=== PATIENT | male | born 1970 | race Native Hawaiian/Other Pacific Islander ===

== ENCOUNTER 2016-10-11 21:46 | Inpatient (IN) | payer OTHER ==
[2016-10-11] MEDS ORDERED: Iohexol 240 (50 ml) PO ONE (23:12)
[2016-10-11] MEDS ORDERED: Sodium Chloride 0.9% 1,000 ML IV STA (23:12)
--- NOTE | 2016-10-11 23:17 | ED PDOC ---
HPI: Abdomen Time Seen by Provider: 10/11/16 22:57 Chief Complaint (Nursing): Abdominal Pain Chief Complaint (Provider): abdominal pain History Per: Patient, Family History/Exam Limitations: no limitations Onset/Duration Of Symptoms: Days (2) Current Symptoms Are (Timing): Still Present Location Of Pain/Discomfort: Diffuse Quality Of Discomfort: Cramping, "Pain" Associated Symptoms: denies: Nausea, Vomiting, Diarrhea Last Bowel Movement: Days Ago (2) Additional History Per: Patient Additional Complaint(s): 46 y/o male history of stomach CA (status-post partial gastrectomy x 7 years) presents to ED with diffuse abdominal pain x 2 days. Associated constipation, not passing gas rectally, decreased appetite. Denies fever, nausea/vomiting, chest pain, shortness of breath, palpitations, dysuria, hematuria. Past Medical History Reviewed: Historical Data, Nursing Documentation, Vital Signs Vital Signs: Last Vital Signs Temp 98.5 F 10/11/16 22:12 Pulse 77 10/11/16 22:12 Resp 18 10/11/16 22:12 BP 108/84 10/11/16 22:12 Pulse Ox 99 10/12/16 04:25 - Medical History Other PMH: stomach CA - Surgical History Other surgeries: partial gastrectomy - Family History Family History: States: Unknown Family Hx - Social History Current smoker - smoking cessation education provided: No Alcohol: Social Drugs: Denies - Home Medications Home Medications: Ambulatory Orders Medication Instructions Recorded No Known Home Med 10/12/16 - Allergies Allergies/Adverse Reactions: Allergies Allergy/AdvReac Type Severity Reaction Status Date / Time No Known Allergies Allergy Verified 10/11/16 22:10 Review of Systems ROS Statement: Except As Marked, All Systems Reviewed And Found Negative Gastrointestinal: Positive for: Abdominal Pain Physical Exam - Reviewed Nursing Documentation Reviewed: Yes Vital Signs Reviewed: Yes - Physical Exam Appears: Positive for: Well, Non-toxic, Uncomfortable Head Exam: Positive for: ATRAUMATIC, NORMAL INSPECTION, NORMOCEPHALIC Skin: Positive for: Pallor Eye Exam: Positive for: Normal appearance ENT: Positive for: Normal ENT Inspection Cardiovascular/Chest: Positive for: Regular Rate, Rhythm Respiratory: Positive for: Normal Breath Sounds Gastrointestinal/Abdominal: Positive for: Bowel Sounds (no BS appreciated LUQ, LLQ), Soft, Tenderness (diffuse), Distended Extremity: Positive for: Normal ROM Neurologic/Psych: Positive for: Alert, Oriented - Laboratory Results Result Diagrams: 10/11/16 23:30 10/11/16 23:30 - ECG ECG: Positive for: Viewed By Me (reviewed by ED attending) ECG Rhythm: Positive for: Junctional Rhythm O2 Sat by Pulse Oximetry: 99 - Radiology X-Ray: Viewed By Me X-Ray Interpretation: No Acute Disease - Progress ED Course And Treament: labs, urine, CT abd/pelvis, IV morphine, IV fluids EXAM: CT Abdomen and Pelvis With Intravenous Contrast. CLINICAL HISTORY: 46 years old, male; Pain; Abdominal pain; Generalized; Prior surgery; Surgery date: 6+ months; Surgery type: Gastrectomy; Additional info: Abd pain, history of stomach ca TECHNIQUE: Axial computed tomography images of the abdomen and pelvis with intravenous contrast. This CT exam was performed using one or more of the following dose reduction techniques : automated exposure control, adjustment of the mA and/or kV according to patient size, and/ or use of iterative reconstruction technique. Coronal and sagittal reformatted images were created and reviewed. CONTRAST: 95 mL of [id number] administered intravenously. EXAM DATE/TIME: Exam ordered 10/11/2016 11:12 PM COMPARISON: No relevant prior studies available. FINDINGS: Lower thorax: No acute findings. ABDOMEN: Liver: There are several hepatic cysts measuring up to 20 mm. Gallbladder and bile ducts: Unremarkable. No calcified stones. No ductal dilation. Pancreas: Unremarkable. No mass. No ductal dilation. Spleen: Unremarkable. No splenomegaly. Adrenals: Unremarkable. No mass. Kidneys and ureters: There is a left renal cyst measuring up to 10 mm. No hydronephrosis. Stomach and bowel: There has been partial gastrectomy with gastrojejunostomy. There are distended segments of small bowel with collapsed distal ileum consistent with small bowel obstruction. There is an abrupt point of transition in the mid abdomen deep and to the right of the umbilicus on series 601 images #[id number] and series 3, images #[id number]. Much of the colon is collapsed. Appendix: There are no changes of appendicitis. A normal appendix is not seen. PELVIS: Bladder: Unremarkable. No mass. Reproductive: Unremarkable as visualized. ABDOMEN and PELVIS: Intraperitoneal space: There is trace fluid in the pelvis, likely reactive. No free air. Bones/joints: No acute fracture. No dislocation. Soft tissues: Unremarkable. Vasculature: Unremarkable. No abdominal aortic aneurysm. Lymph nodes: Unremarkable. No enlarged lymph nodes. IMPRESSION: 1. Small bowel obstruction. There is an abrupt point of transition in the mid abdomen deep and to the right of the umbilicus. 2. Status post partial gastrectomy with gastrojejunostomy. 3. Trace fluid in the pelvis, likely reactive. Thank you for allowing u Case discussed with Dr. Horn, Surgeon on-call, who will consult patient in am. Dr. Adame, president ceo & founder on-call, aware. Case discussed with Dr. Horn, medical service on-call, for admission. Dr. Horn requesting GI consult. Dr Rizvi, GI fellow working with Dr. Dimas, aware. Disposition - Clinical Impression Clinical Impression: Small bowel obstruction - Patient ED Disposition Is Patient to be Admitted: Yes - Disposition Disposition Time: 03:10 Condition: FAIR - Pt Status Changed To: Hospital Disposition Of: Inpatient - Admit Certification Admit to Inpatient:: After my assessment, the patient will require hospitalization for at least two midnights. This is because of the severity of symptoms shown, intensity of services needed, and/or the medical risk in this patient being treated as an outpatient.
[2016-10-11] MEDS ORDERED: Iohexol 240 (50 ml) ONE (23:45)
[2016-10-11 23:55] LABS: BASO % 0.7 % (0.0-2.0); EOS # 0.1 K/uL (0.0-0.7); HEMATOCRIT 44.6 % (35.0-51.0); LYMPH % 19.1 % (20.0-40.0); MEAN CELL VOLUME 84.2 fl (80.0-94.0); MEAN CORPUSCULAR HEMOGLOBIN 26.6 pg (27.0-31.0); MEAN CORPUSCULAR HGB CONC 31.6 g/dL (33.0-37.0); MEAN PLATELET VOLUME 8.4 fl (7.2-11.7); MONO # 0.8 K/uL (0.0-0.8); MONO % 16.5 % (0.0-10.0); NEUT # 3.1 K/uL (1.8-7.0); NEUT % 61.7 % (50.0-75.0); NRBC % 0.1 % (0.0-0.0); RED CELL DISTRIBUTION WIDTH 14.2 % (11.5-14.5)
[2016-10-12 00:05] LABS: ALB/GLOB RATIO 1.3 (1.0-2.1); ALKALINE PHOSPHATASE 66 U/L (38-126); ALT/SGPT 27 U/L (21-72); AST/SGOT 27 U/L (17-59); BILIRUBIN,TOTAL 2.3 mg/dl (0.2-1.3); BLOOD UREA NITROGEN 24 mg/dl (9-20); CALCIUM 9.6 mg/dL (8.4-10.2); CARBON DIOXIDE 24 mmol/L (22-30); CHLORIDE 97 mmol/L (98-107); GFR AFRICAN-AMERICAN > 60; GLUCOSE,RANDOM 120 mg/dL (75-110); LIPASE 22 U/L (23-300); POTASSIUM 4.1 MMOL/L (3.6-5.0); SODIUM 130 mmol/l (132-148); TOTAL PROTEIN 8.1 G/DL (6.3-8.2)
[2016-10-12 00:15] LABS: PARTIAL THROMBOPLASTIN TIME 25.8 SECONDS (23.3-32.5)
[2016-10-12] MEDS ORDERED: Iohexol 300 100 ML IJ ONE (01:41)
[2016-10-12] MEDS ORDERED: Sodium Chloride 0.9% 50 ML IV ONE (01:41)
[2016-10-12] MEDS ORDERED: Dextrose 5%/0.45% NS 500 ML IV SCH (04:30)
--- NOTE | 2016-10-12 07:06 | CARD ---
APPROVED REPORT EKG Measurement Heart [id number] <Conclusion> Sinus rhythm normal ECG
--- NOTE | 2016-10-12 07:33 | CP.PCM.CON ---
<Augustus Esparza Main - Last Filed: 10/12/16 07:22> History of Present Illness - History of Present Illness History of Present Illness: General Surgery: Dr Martins Pt is a 46M with PMH + for partial gastrectomy with gastrojejunostomy for gastric cancer 8 years ago in [place]. He presents to ED with ~3 day history of diffuse abdominal pain, obstipation, and nausea. Pt reports he has not had a BM or passed flatus since tuesday. He has been getting progressively more distended. He has felt like he needs to vomit but has been unable to. 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 The previous episodes have lasted only 24 hours and resolved spontaneously. He denies any further associated symptoms including fevers, chills, diarrhea, dysuria, recent URI. PMH: gastric cancer PSHx: partial gastrectomy w/ Billroth II reconstruction Social: former smoker, social EtOH use Review of Systems - Review of Systems All systems: reviewed and no additional remarkable complaints except (as per hpi ) Past Patient History - Past Social History Alcohol: Social Drugs: Denies - HEMATOLOGICAL/ONCOLOGICAL Hx Cancer: Yes (stomach) - PSYCHIATRIC Hx Substance Use: No Meds Allergies/Adverse Reactions: Allergies Allergy/AdvReac Type Severity Reaction Status Date / Time No Known Allergies Allergy Verified 10/11/16 22:10 - Medications Medications: Current Medications Sodium Chloride (Sodium Chloride 0.9%) 1,000 mls @ 125 mls/hr IV .Q8H ALEJANDRO Stop: 10/13/16 07:31 Morphine Sulfate (Morphine) 4 mg IVP Q4 PRN PRN Reason: Pain, moderate (4-7) Ondansetron HCl (Zofran Inj) 4 mg IVP Q4 PRN PRN Reason: Nausea/Vomiting Physical Exam - Constitutional Appears: Non-toxic, No Acute Distress - Head Exam Head Exam: NORMOCEPHALIC - Eye Exam Eye Exam: absent: Scleral icterus - ENT Exam ENT Exam: Mucous Membranes Dry - Respiratory Exam Respiratory Exam: absent: Accessory Muscle Use, Respiratory Distress - Cardiovascular Exam Cardiovascular Exam: REGULAR RHYTHM. absent: Tachycardia - GI/Abdominal Exam GI & Abdominal Exam: Distended, Soft, Tenderness (minimal and diffuse). absent : Firm, Guarding, Hernia, Rebound, Rigid - Extremities Exam Extremities exam: Negative for: pedal edema - Neurological Exam Neurological exam: Alert, Oriented x3 - Psychiatric Exam Psychiatric exam: Normal Affect, Normal Mood Results - Vital Signs Recent Vital Signs: Last Vital Signs Temp 98.5 F 10/11/16 22:12 Pulse 61 10/12/16 06:41 Resp 16 10/12/16 06:41 BP 110/80 10/12/16 06:41 Pulse Ox 96 10/12/16 06:41 - Labs Result Diagrams: 10/11/16 23:30 10/11/16 23:30 Assessment & Plan - Assessment and Plan (Free Text) Assessment: 46M with PMH of billroth 2 now presents with partial SBO Plan: NPO IV fluids anti-emetics PRN pain medicine PRN hold DVT prophylaxis as OR may be considered in future further recs pending attending evaluation - will add addendum will d/w Dr Eliezer Esparza, PGY2 - Date & Time Date: 10/12/16 Time: 07:35 <Eliazar Martins - Last Filed: 10/12/16 09:27> History of Present Illness - History of Present Illness History of Present Illness: Patient was seen and examined at the bedside. Agree with the resident's note above. Meds - Medications Medications: Current Medications Sodium Chloride (Sodium Chloride 0.9%) 1,000 mls @ 125 mls/hr IV .Q8H ALEJANDRO Stop: 10/13/16 07:31 Morphine Sulfate (Morphine) 4 mg IVP Q4 PRN PRN Reason: Pain, moderate (4-7) Ondansetron HCl (Zofran Inj) 4 mg IVP Q4 PRN PRN Reason: Nausea/Vomiting Results - Vital Signs Recent Vital Signs: Last Vital Signs Temp 98.7 F 10/12/16 07:30 Pulse 62 10/12/16 07:30 Resp 19 10/12/16 07:30 BP 121/74 10/12/16 07:30 Pulse Ox 96 10/12/16 07:30 - Labs Result Diagrams: 10/12/16 08:00 10/12/16 05:28 Labs: Laboratory Results - last 24 hr 10/12/16 10/12/16 05:28 08:00 WBC 4.5 L RBC 4.64 Hgb 12.6 Hct 39.0 MCV 83.9 MCH 27.2 MCHC 32.4 L RDW 14.1 Plt Count 183 MPV 8.4 Neut % (Auto) 43.8 L Lymph % (Auto) 32.0 [place] % (Auto) 19.5 H Eos % (Auto) 4.3 H Baso % (Auto) 0.4 Neut # 2.0 Lymph # 1.4 [place] # 0.9 H Eos # 0.2 Baso # 0.0 Sodium 140 Potassium 3.8 Chloride 99 Carbon Dioxide 28 Anion Gap 17 BUN 19 Creatinine 0.9 Est GFR ( Amer) > 60 Est GFR (Non-Af Amer) > 60 Random Glucose 116 H Calcium 8.7 Total Bilirubin 1.7 H AST 20 ALT 20 L D Alkaline Phosphatase 52 Total Protein 6.7 Albumin 3.8 Globulin 2.9 Albumin/Globulin Ratio 1.3 - Imaging and Cardiology CT scan - abdomen Status: Image reviewed by me, Report reviewed by me Assessment & Plan - Assessment and Plan (Free Text) Assessment: 46 y.o. male with small bowel obstruction Plan: - Keep NPO - IV fluids - pain control - NG tube if vomits - Pepcid - Repeat labs in am - Will follow
[2016-10-12 08:15] LABS: RBC URINE 2 /hpf (0-3); URINE BILIRUBIN NEGATIVE (NEGATIVE); URINE BLOOD NEGATIVE (NEGATIVE); URINE COLOR AMBER (YELLOW); URINE GLUCOSE (UA) NEG (Normal); URINE KETONE 80 mg/dL (NEGATIVE); URINE LEUKOCYTE ESTERASE NEG Leu/uL (Negative); URINE PROTEIN 100 mg/dL (NEGATIVE); URINE UROBILINOGEN 0.2-1.0 mg/dL (0.2-1.0); WBC URINE 4 /hpf (0-5)
[2016-10-12 08:37] LABS: ALB/GLOB RATIO 1.3 (1.0-2.1); ALKALINE PHOSPHATASE 52 U/L (38-126); ALT/SGPT 20 U/L (21-72); AST/SGOT 20 U/L (17-59); BILIRUBIN,TOTAL 1.7 mg/dl (0.2-1.3); BLOOD UREA NITROGEN 19 mg/dl (9-20); CALCIUM 8.7 mg/dL (8.4-10.2); CARBON DIOXIDE 28 mmol/L (22-30); CHLORIDE 99 mmol/L (98-107); GFR AFRICAN-AMERICAN > 60; GLUCOSE,RANDOM 116 mg/dL (75-110); POTASSIUM 3.8 MMOL/L (3.6-5.0); SODIUM 140 mmol/l (132-148); TOTAL PROTEIN 6.7 G/DL (6.3-8.2)
[2016-10-12 08:37] LABS: BASO % 0.4 % (0.0-2.0); EOS # 0.2 K/uL (0.0-0.7); EOS % 4.3 % (0.0-4.0); LYMPH # 1.4 K/uL (1.0-4.3); MEAN CELL VOLUME 83.9 fl (80.0-94.0); MEAN CORPUSCULAR HEMOGLOBIN 27.2 pg (27.0-31.0); MEAN CORPUSCULAR HGB CONC 32.4 g/dL (33.0-37.0); MEAN PLATELET VOLUME 8.4 fl (7.2-11.7); MONO # 0.9 K/uL (0.0-0.8); MONO % 19.5 % (0.0-10.0); NEUT % 43.8 % (50.0-75.0); NRBC % 0.2 % (0.0-0.0); RED CELL DISTRIBUTION WIDTH 14.1 % (11.5-14.5); WHITE BLOOD COUNT 4.5 K/uL (4.8-10.8)
--- NOTE | 2016-10-12 09:08 | CT ---
PROCEDURE: CT Abdomen and Pelvis with contrast HISTORY: abd pain, history of stomach CA COMPARISON: None. TECHNIQUE: Contrast dose: 95 mL Omnipaque 300 Radiation dose: Total exam DLP = 448.50 mGy-cm. FINDINGS: LOWER THORAX: Unremarkable. LIVER: Normal size and contour. Multiple low-density masses, possibly cysts, largest 2.0 cm. Consider correlation with ultrasound. No biliary dilatation. GALLBLADDER AND BILE DUCTS: Unremarkable. PANCREAS: Unremarkable. No gross lesion or ductal dilatation. SPLEEN: Unremarkable. ADRENALS: Unremarkable. No mass. KIDNEYS AND URETERS: Unremarkable. No hydronephrosis. No solid mass. VASCULATURE: Unremarkable. No aortic aneurysm. BOWEL: Multiple dilated small bowel loops with sharp transition point noted in the anterior abdomen, at the level of the umbilicus, right parasagittal the. Distal to this transition point, there are collapsed loops of small intestine. Status post partial gastrectomy with gastrojejunostomy. APPENDIX: Not identified. PERITONEUM: Minimal fluid in pelvis, nonspecific LYMPH NODES: Unremarkable. No enlarged lymph nodes. BLADDER: Nondistended REPRODUCTIVE: Normal prostate BONES: No acute fracture. OTHER FINDINGS: None. IMPRESSION: Mechanical small-bowel obstruction. Transition point identified at the level of the emboli kiss, anteriorly. Minimal ascites, possibly reactive. Status post partial gastrectomy with gastrojejunostomy. Multiple low-density hepatic masses, possibly liver cysts. Consider correlation with ultrasound examination. Preliminary interpretation of this examination was reported by [facility] at 2:46 a.m. on 10/12/2016. There is concurrence of this report with the preliminary interpretation.
--- NOTE | 2016-10-12 13:09 | CP.PCM.HP ---
<Barbi Kraus - Last Filed: 10/12/16 13:17> History of Present Illness - History of Present Illness History of Present Illness: Pt is a 46 y/o male with PMH + for partial gastrectomy with gastrojejunostomy for gastric cancer 8 years who presented to ED with ~3 day history of diffuse abdominal pain, obstipation, and nausea. Pt reports he has not had a BM or passed flatus since tuesday. He has been getting progressively more distended and nauseous but has not been able to vomit . 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 The previous episodes have lasted only 24 hours and resolved spontaneously. He denies any further associated symptoms including fevers, chills, diarrhea, dysuria, recent URI. pt seen and examined with morning, reports abdominal pain and nausea are improving but has not completely resolved. Present on Admission - Present on Admission Any Indicators Present on Admission: No Review of Systems - Review of Systems All systems: reviewed and no additional remarkable complaints except Review of Systems: per HPI Past Patient History - Past Social History Smoking Status: Former Smoker - CARDIAC Hx Cardiac Disorders: No - PULMONARY Hx Respiratory Disorders: No - NEUROLOGICAL Hx Neurological Disorder: No - HEENT Hx HEENT Problems: No - RENAL Hx Chronic Kidney Disease: No - ENDOCRINE/METABOLIC Hx Endocrine Disorders: Yes (STOMACH CA) - HEMATOLOGICAL/ONCOLOGICAL Hx Blood Disorders: No - INTEGUMENTARY Hx Dermatological Problems: No - MUSCULOSKELETAL/RHEUMATOLOGICAL Hx Musculoskeletal Disorders: No Hx Falls: No - GASTROINTESTINAL Other/Comment: hx of stomach cancer - treated 8 years ago with chemotherapy and radiation therapy - GENITOURINARY/GYNECOLOGICAL Hx Genitourinary Disorders: No - PSYCHIATRIC Hx Psychophysiologic Disorder: No Hx Substance Use: No - SURGICAL HISTORY Other/Comment: partial gastrectomy with biliroth II reconstruction - 8 years ago - ANESTHESIA Hx Anesthesia: Yes Hx Anesthesia Reactions: No Hx Malignant Hyperthermia: No Meds Allergies/Adverse Reactions: Allergies Allergy/AdvReac Type Severity Reaction Status Date / Time No Known Allergies Allergy Verified 10/11/16 22:10 Physical Exam - Constitutional Appears: Non-toxic, No Acute Distress - Head Exam Head Exam: NORMOCEPHALIC - Eye Exam Eye Exam: Normal appearance, PERRL Pupil Exam: NORMAL ACCOMODATION - ENT Exam ENT Exam: Mucous Membranes Moist - Respiratory Exam Respiratory Exam: Clear to Auscultation Bilateral, NORMAL BREATHING PATTERN. absent: Rhonchi, Wheezes - Cardiovascular Exam Cardiovascular Exam: REGULAR RHYTHM, +S1, +S2 - GI/Abdominal Exam GI & Abdominal Exam: Distended, Normal Bowel Sounds, Soft, Tenderness - Extremities Exam Extremities exam: Positive for: full ROM. Negative for: calf tenderness, pedal edema - Neurological Exam Neurological exam: Alert, CN II-XII Intact, Oriented x3 Results - Vital Signs Recent Vital Signs: Last Vital Signs Temp 98.7 F 10/12/16 07:30 Pulse 67 10/12/16 09:05 Resp 20 10/12/16 09:05 BP 121/74 10/12/16 07:30 Pulse Ox 97 10/12/16 09:05 - Labs Result Diagrams: 10/12/16 08:00 10/12/16 05:28 Labs: Laboratory Results - last 24 hr 10/12/16 10/12/16 05:28 08:00 WBC 4.5 L RBC 4.64 Hgb 12.6 Hct 39.0 MCV 83.9 MCH 27.2 MCHC 32.4 L RDW 14.1 Plt Count 183 MPV 8.4 Neut % (Auto) 43.8 L Lymph % (Auto) 32.0 [place] % (Auto) 19.5 H Eos % (Auto) 4.3 H Baso % (Auto) 0.4 Neut # 2.0 Lymph # 1.4 [place] # 0.9 H Eos # 0.2 Baso # 0.0 Sodium 140 Potassium 3.8 Chloride 99 Carbon Dioxide 28 Anion Gap 17 BUN 19 Creatinine 0.9 Est GFR ( Amer) > 60 Est GFR (Non-Af Amer) > 60 Random Glucose 116 H Calcium 8.7 Total Bilirubin 1.7 H AST 20 ALT 20 L D Alkaline Phosphatase 52 Total Protein 6.7 Albumin 3.8 Globulin 2.9 Albumin/Globulin Ratio 1.3 Assessment & Plan - Assessment and Plan (Free Text) Assessment: 46M with PMH of stomach cancer s/p partial gastrectomy w/ Billroth II reconstruction now presents with partial SBO Plan: Partial small bowel obstruction surgery consulted- recommendations appreciated NPO - advance diet as tolerated by pt IV fluids anti-emetics PRN pain medicine PRN DVT prophylaxis- Lovenox (as there is no plan for surgery as of this morning) <Delta Horn - Last Filed: 10/15/16 12:37> Results - Vital Signs Recent Vital Signs: Last Vital Signs Temp 98.2 F 10/14/16 12:32 Pulse 66 10/14/16 12:32 Resp 20 10/14/16 12:32 BP 112/68 10/14/16 12:32 Pulse Ox 100 10/14/16 12:32 - Labs Result Diagrams: 10/14/16 06:40 10/14/16 06:40 Assessment & Plan - Assessment and Plan (Free Text) Assessment: Patient was personally seen and examined by me in rounds with residents. Available labs and diagnostic data reviewed. Case, Patient's condition and management plan discussed with residents in rounds. Agree with resident's documentation. Plan: As ordered. Delta Horn MD
[2016-10-12] MEDS: Sodium Chloride 0.9% 1,000 ML IV SCH ×3 (13:11→22:46)
--- NOTE | 2016-10-12 13:57 | RAD ---
HISTORY: abd pain COMPARISON: None available. TECHNIQUE: Chest, one view. FINDINGS: LUNGS: No focal consolidation. Please note that chest x-ray has limited sensitivity for the detection of pulmonary masses. PLEURA: No significant pleural effusion identified. No definite pneumothorax . CARDIOVASCULAR: The cardiomediastinal silhouette appears within normal limits of size. OSSEOUS STRUCTURES: No acute osseous abnormality identified. VISUALIZED UPPER ABDOMEN: Unremarkable. OTHER FINDINGS: None. IMPRESSION: No focal consolidation, significant pleural effusion, or definite pneumothorax identified.
--- NOTE | 2016-10-12 17:10 | CON ---
DATE: 10/12/2016 The patient is a 46-year-old male originally from [facility], who has a history of gastric carcinoma , underwent partial gastrectomy with gastrojejunostomy some 7-8 years ago at the [facility]. The patient stated after surgery he underwent post-chemotherapy and radiation therapy, but he has no followup for me for many years after that. He presented because of constipation for both b owel movement and flatus. The patient denies any nausea or vomiting, and is unaware of any prior car diac history. The patient denies any chest pain or shortness of breath. The patient's constipation has been for 2 days prior to admission. SOCIAL HISTORY: Nonsmoker. He works as an senior financial reporting accountant. MEDICATIONS: Morphine sulfate 4 mg intravenously q. 4 hours p.r.n., Pepcid 20 mg intravenously daily , normal saline at 125 mL an hour, Zofran 4 mg intravenously q. 4 hours p.r.n. PAST MEDICAL HISTORY: Gastric carcinoma. Underwent partial gastrectomy with gastrojejunostomy 7-8 y ears ago. PHYSICAL EXAMINATION: The patient is a middle-aged male who does not appear to be in any distress. VITAL SIGNS: Blood pressure 121/74, heart rate 62, temperature 98.7, respirations 19. HENT: Normocephalic. NECK: No JVD. CHEST: Clear. HEART: S1, S2 regular. ABDOMEN: Mildly tender. EXTREMITIES: No edema. LABORATORIES: CBC: WBC 4.8, hemoglobin 12.6, hematocrit 39, platelet count 183,000. SMA-7 today is within normal limits except for glucose 116. Yesterday's sodium was 130, below normal. Lipase is 2 2, below normal limits. PT, PTT is within normal limits. EKG revealed normal sinus rhythm. Abdomen and pelvic CT scan revealed a mechanical small-bowel obstr uction. Minimal ascites, possibly reactive. Status post partial gastrectomy with gastrojejunostomy. Multiple low density hepatic masses, possibly liver cyst. Consider correlation with ultrasound exa mination. ASSESSMENT: 1. Mechanical small-bowel obstruction. 2. Rule out recurrence of gastric cancer. 3. Rule out liver metastasis. 4. There is no evidence of cardiac issues at this time. However, an echo will be ordered in case the patient has to be evaluated for surgery. In the meantime, continue IV hydration with normal saline at 125 mL an hour. Xander Mosqueda MD cc: [id number] TT: 10/12/2016 17:09:07 Confirmation # [id number] Dictation # [id number]
--- NOTE | 2016-10-12 22:48 | CP.PCM.CON ---
History of Present Illness - History of Present Illness History of Present Illness: GI consult requested by Dr Horn- This is a 46 yr old M with history of partial gastrectomy with gastrojejunostomy for gastric cancer 8 years ago at [facility]. He started to have contipation and unable to pass flatus 2 days ago with abdominal pain. He has had similar episodes in the past with last episode 3 years ago. Pt reports he has not had a BM or passed flatus since tuesday. On his last episode he was told at [facility] that he had "dumping syndrome". The previous episodes have lasted only 24 hours and resolved spontaneously. He denies nausea, vomiting, fever, chills. Review of Systems - Review of Systems Review of Systems: 12 point ROS unremarkable except documented in HPI Past Patient History - Past Social History Smoking Status: Former Smoker - CARDIAC Hx Cardiac Disorders: No - PULMONARY Hx Respiratory Disorders: No - NEUROLOGICAL Hx Neurological Disorder: No - HEENT Hx HEENT Problems: No - RENAL Hx Chronic Kidney Disease: No - ENDOCRINE/METABOLIC Hx Endocrine Disorders: Yes (STOMACH CA) - HEMATOLOGICAL/ONCOLOGICAL Hx Blood Disorders: No - INTEGUMENTARY Hx Dermatological Problems: No - MUSCULOSKELETAL/RHEUMATOLOGICAL Hx Musculoskeletal Disorders: No Hx Falls: No - GASTROINTESTINAL Other/Comment: hx of stomach cancer - treated 8 years ago with chemotherapy and radiation therapy - GENITOURINARY/GYNECOLOGICAL Hx Genitourinary Disorders: No - PSYCHIATRIC Hx Psychophysiologic Disorder: No Hx Substance Use: No - SURGICAL HISTORY Other/Comment: partial gastrectomy with biliroth II reconstruction - 8 years ago - ANESTHESIA Hx Anesthesia: Yes Hx Anesthesia Reactions: No Hx Malignant Hyperthermia: No Meds Allergies/Adverse Reactions: Allergies Allergy/AdvReac Type Severity Reaction Status Date / Time No Known Allergies Allergy Verified 10/11/16 22:10 - Medications Medications: Current Medications Famotidine (Pepcid) 20 mg IVP DAILY [facility] Last Admin: 10/12/16 13:09 Dose: 20 mg Sodium Chloride (Sodium Chloride 0.9%) 1,000 mls @ 125 mls/hr IV .Q8H [facility] Stop: 10/13/16 07:31 Last Admin: 10/12/16 16:42 Dose: Not Given Morphine Sulfate (Morphine) 4 mg IVP Q4 PRN PRN Reason: Pain, moderate (4-7) Last Admin: 03/21/17 21:24 Dose: 4 mg Ondansetron HCl (Zofran Inj) 4 mg IVP Q4 PRN PRN Reason: Nausea/Vomiting Physical Exam - Constitutional Appears: Non-toxic, No Acute Distress - Head Exam Head Exam: ATRAUMATIC, NORMAL INSPECTION, NORMOCEPHALIC - Respiratory Exam Respiratory Exam: Clear to Auscultation Bilateral, NORMAL BREATHING PATTERN - Cardiovascular Exam Cardiovascular Exam: REGULAR RHYTHM - GI/Abdominal Exam GI & Abdominal Exam: Diminished Bowel Sounds, Hypoactive Bowel Sounds, Soft. absent: Tenderness Additional comments: Not distended No guarding well healed surgical scar - Extremities Exam Extremities exam: Positive for: normal inspection, pedal pulses present - Neurological Exam Neurological exam: Alert, CN II-XII Intact, Normal Gait, Oriented x3, Reflexes Normal - Psychiatric Exam Psychiatric exam: Normal Affect, Normal Mood - Skin Skin Exam: Dry, Intact, Normal Color, Warm Results - Vital Signs Recent Vital Signs: Last Vital Signs Temp 98.4 F 10/12/16 19:40 Pulse 63 10/12/16 19:40 Resp 18 10/12/16 19:40 BP 108/70 10/12/16 19:40 Pulse Ox 97 10/12/16 19:40 - Labs Result Diagrams: 10/12/16 08:00 10/12/16 05:28 Labs: Laboratory Results - last 24 hr 10/12/16 10/12/16 05:28 08:00 WBC 4.5 L RBC 4.64 Hgb 12.6 Hct 39.0 MCV 83.9 MCH 27.2 MCHC 32.4 L RDW 14.1 Plt Count 183 MPV 8.4 Neut % (Auto) 43.8 L Lymph % (Auto) 32.0 Meagher % (Auto) 19.5 H Eos % (Auto) 4.3 H Baso % (Auto) 0.4 Neut # 2.0 Lymph # 1.4 Meagher # 0.9 H Eos # 0.2 Baso # 0.0 Sodium 140 Potassium 3.8 Chloride 99 Carbon Dioxide 28 Anion Gap 17 BUN 19 Creatinine 0.9 Est GFR ( Amer) > 60 Est GFR (Non-Af Amer) > 60 Random Glucose 116 H Calcium 8.7 Total Bilirubin 1.7 H AST 20 ALT 20 L D Alkaline Phosphatase 52 Total Protein 6.7 Albumin 3.8 Globulin 2.9 Albumin/Globulin Ratio 1.3 Assessment & Plan - Assessment and Plan (Free Text) Assessment: 46 yr old M with past gastrectomy admitted with small bowel obstruction. Abdomen no guarding with diminished bowel sounds and transition point on CT scan. Will treat conservatively. If no relief by tomorrow will repeat AXR Plan: NPO IVF Supplement electrolytes as needed surgical consult appreciated NGT decompression if abdominal distension AXR if obstruction not relieved or worsening symptoms Will follow - Date & Time Date: 10/12/16 Time: 22:50
[2016-10-13] MEDS: Sodium Chloride 0.9% 1,000 ML IV SCH (06:31)
--- NOTE | 2016-10-13 07:29 | CARD ---
APPROVED REPORT EXAM: Two-dimensional and M-mode echocardiogram with Doppler and color Doppler. Other Information Quality : GoodRhythm : NSR INDICATION Pre-Op 2D DIMENSIONS IVSd0.92 (0.7-1.1cm)LVDd4.41 (3.9-5.9cm) LVOT Diameter1.92 (1.8-2.4cm)PWd0.92 (0.7-1.1cm) IVSs1.14 (0.8-1.2cm)LVDs2.75 (2.5-4.0cm) FS (%) 37.6 %PWs1.63 (0.8-1.2cm) M-Mode DIMENSIONS Left Atrium (MM)3.38 (2.5-4.0cm)IVSd0.95 (0.7-1.1cm) Aortic Root2.80 (2.2-3.7cm)LVDd4.48 (4.0-5.6cm) Aortic Cusp Exc.1.70 (1.5-2.0cm)PWd0.82 (0.7-1.1cm) IVSs1.15 cmFS (%) 40 % LVDs2.69 (2.0-3.8cm)PWs1.46 cm Mitral Valve MV E Gvyephmh17.7cm/sMV DECEL [id number] A Qbmaanon08.8cm/s MV KMZ12ivQ/A ratio1.5MVA (PHT)3.70cm2 TDI Lateral E' Peak V15.89cm/sMedial E' Peak V10.59cm/sE/Lateral E'3.9 E/Medial E'5.9 Pulmonary Valve PV Peak Jxxtxhsf938.4cm/s LEFT VENTRICLE The left ventricle is normal size. There is normal left ventricular wall thickness. Left ventricle systolic function is normal. The Ejection Fraction is 65-70%. There is normal LV segmental wall motion. The left ventricular diastolic function is normal. RIGHT VENTRICLE The right ventricle is normal size. There is normal right ventricular wall thickness. The right ventricular systolic function is normal. ATRIA The left atrium size is normal. The right atrium size is normal. AORTIC VALVE The aortic valve is normal in structure and function. No aortic regurgitation is present. There is no aortic valvular stenosis. MITRAL VALVE The mitral valve is normal in structure and function. There is no evidence of mitral valve prolapse. There is no mitral valve stenosis. There is no mitral valve regurgitation noted. TRICUSPID VALVE The tricuspid valve is normal in structure and function. There is no tricuspid valve regurgitation noted. PULMONIC VALVE The pulmonary valve is normal in structure and function. There is no pulmonic valvular regurgitation. GREAT VESSELS The aortic root is normal in size. Due to poor image quality, the IVC could not be assessed. PERICARDIAL EFFUSION The pericardium appears normal. <Conclusion> The left ventricle is normal size. There is normal left ventricular wall thickness. There is normal LV segmental wall motion. Left ventricle systolic function is normal. The Ejection Fraction is 65-70%. The left ventricular diastolic function is normal.
--- NOTE | 2016-10-13 10:31 | CP.PCM.PN ---
Subjective - Date & Time of Evaluation Date of Evaluation: 10/13/16 Time of Evaluation: 10:05 - Subjective Subjective: Richard was seen and examined at the bedside. States that feels better, no nausea, no vomiting, denies any flatus or bowel movements. Objective - Vital Signs/Intake and Output Vital Signs (last 24 hours): Temp Pulse Resp BP Pulse Ox 98.0 F 70 20 115/76 97 10/13/16 08:14 10/13/16 08:14 10/13/16 08:14 10/13/16 08:14 10/13/16 08:14 - Medications Medications: Current Medications Famotidine (Pepcid) 20 mg IVP DAILY [facility] Last Admin: 10/12/16 13:09 Dose: 20 mg Morphine Sulfate (Morphine) 4 mg IVP Q4 PRN PRN Reason: Pain, moderate (4-7) Last Admin: 10/12/16 21:24 Dose: 4 mg Ondansetron HCl (Zofran Inj) 4 mg IVP Q4 PRN PRN Reason: Nausea/Vomiting - Labs Labs: 10/12/16 08:00 10/12/16 05:28 PT 11.1 SECONDS (9.6-11.2) 10/11/16 23:30 INR 1.07 (0.92-1.08) 10/11/16 23:30 APTT 25.8 SECONDS (23.3-32.5) 10/11/16 23:30 - Constitutional Appears: Well, Non-toxic, No Acute Distress - Head Exam Head Exam: ATRAUMATIC, NORMAL INSPECTION, NORMOCEPHALIC - Eye Exam Eye Exam: EOMI, Normal appearance, PERRL Pupil Exam: NORMAL ACCOMODATION, PERRL - ENT Exam ENT Exam: Mucous Membranes Moist, Normal Exam - Neck Exam Neck Exam: Full ROM, Normal Inspection - Respiratory Exam Respiratory Exam: NORMAL BREATHING PATTERN - Cardiovascular Exam Cardiovascular Exam: REGULAR RHYTHM, +S1, +S2 - GI/Abdominal Exam GI & Abdominal Exam: Soft, Normal Bowel Sounds Additional comments: Very mildly tender, ND, no rebound , no guarding, well healed incisions from prior surgery - Rectal Exam Rectal Exam: Deferred - Extremities Exam Extremities Exam: Full ROM, Normal Inspection - Neurological Exam Neurological Exam: Alert, Awake, CN II-XII Intact, Oriented x3 - Psychiatric Exam Psychiatric exam: Normal Affect, Normal Mood - Skin Skin Exam: Dry, Intact, Normal Color, Warm Assessment and Plan - Assessment and Plan (Free Text) Assessment: 46 y.o. male with small bowel obstruction Plan: - Keep NPO - IV fluids - Pepcid - Zofran prn - NG tube - Repeat labs in am - Will follow
[2016-10-13] MEDS ORDERED: Chlorhexidine Gluconate 1 APPL/PKT TP ONE (10:41)
--- NOTE | 2016-10-13 13:06 | CP.PCM.PN ---
<NayanaBarbi - Last Filed: 10/13/16 13:07> Subjective - Date & Time of Evaluation Date of Evaluation: 10/13/16 Time of Evaluation: 08:30 - Subjective Subjective: pt seen and examined at bedside this morning, states abdominal pain still persist. has not passed flatus, no bowel movement. Denies any headaches, back pain, dizziness or visual changes Objective - Vital Signs/Intake and Output Vital Signs (last 24 hours): Temp Pulse Resp BP Pulse Ox 98.0 F 71 20 113/69 100 10/13/16 12:24 10/13/16 12:24 10/13/16 12:24 10/13/16 12:24 10/13/16 12:24 - Medications Medications: Current Medications Famotidine (Pepcid) 20 mg IVP DAILY [facility] Last Admin: 10/13/16 10:00 Dose: 20 mg Morphine Sulfate (Morphine) 4 mg IVP Q4 PRN PRN Reason: Pain, moderate (4-7) Last Admin: 10/12/16 21:24 Dose: 4 mg Ondansetron HCl (Zofran Inj) 4 mg IVP Q4 PRN PRN Reason: Nausea/Vomiting - Labs Labs: 10/12/16 08:00 10/12/16 05:28 PT 11.1 SECONDS (9.6-11.2) 10/11/16 23:30 INR 1.07 (0.92-1.08) 10/11/16 23:30 APTT 25.8 SECONDS (23.3-32.5) 10/11/16 23:30 - Constitutional Appears: Non-toxic, No Acute Distress - Head Exam Head Exam: NORMOCEPHALIC - Eye Exam Eye Exam: Normal appearance - ENT Exam ENT Exam: Mucous Membranes Moist - Respiratory Exam Respiratory Exam: Clear to Ausculation Bilateral, NORMAL BREATHING PATTERN. absent: Rhonchi, Wheezes - Cardiovascular Exam Cardiovascular Exam: REGULAR RHYTHM, +S1, +S2 - GI/Abdominal Exam GI & Abdominal Exam: Soft, Tenderness, Normal Bowel Sounds - Neurological Exam Neurological Exam: Alert, CN II-XII Intact, Oriented x3 Assessment and Plan - Assessment and Plan (Free Text) Assessment: 46M with PMH of stomach cancer s/p partial gastrectomy w/ Billroth II reconstruction now presents with partial SBO Plan: Partial small bowel obstruction surgery consulted- recommendations appreciated GI consulted- recommendations appreciated abd xray ordered- f/u NPO - NG tube inserted by surgery IV fluids anti-emetics PRN pain medicine PRN DVT prophylaxis- Lovenox <Delta Horn - Last Filed: 10/15/16 12:42> Objective - Vital Signs/Intake and Output Vital Signs (last 24 hours): Temp Pulse Resp BP Pulse Ox 98.2 F 66 20 112/68 100 10/14/16 12:32 10/14/16 12:32 10/14/16 12:32 10/14/16 12:32 10/14/16 12:32 - Labs Labs: 10/14/16 06:40 10/14/16 06:40 PT 11.1 SECONDS (9.6-11.2) 10/11/16 23:30 INR 1.07 (0.92-1.08) 10/11/16 23:30 APTT 25.8 SECONDS (23.3-32.5) 10/11/16 23:30 Assessment and Plan - Assessment and Plan (Free Text) Assessment: Patient was personally seen and examined by me in rounds with residents. Available labs and diagnostic data reviewed. Case, Patient's condition and management plan discussed with residents in rounds. Agree with resident's documentation. Plan: As ordered. Delta Horn MD
--- NOTE | 2016-10-13 15:11 | PN ---
DATE: 10/13/2016 The patient denies chest pain or shortness of breath. PHYSICAL EXAMINATION: VITAL SIGNS: Blood pressure 113/69, heart rate 71, temperature 98, respirations 20. HEENT: Normocephalic. NECK: No JVD. CHEST: Clear. HEART: S1, S2 regular. EXTREMITIES: No edema. Echocardiograph study report revealed normal left ventricular size, wall thickness and ejection fract ion. ASSESSMENT: 1. Mechanical small-bowel obstruction. 2. History of gastric cancer status post partial gastrectomy with gastrojejunostomy. RECOMMENDATIONS: Continue current p.r.n. IV morphine sulfate. Continue IV Pepcid and p.r.n. IV Zofr an. Cardiac-guerrero, patient is cleared for any surgical intervention. Xander Mosqueda MD cc: [id number] TT: 10/13/2016 15:11:29 Confirmation # [id number] Dictation # [id number]
--- NOTE | 2016-10-13 15:28 | CP.PCM.PN ---
Subjective - Date & Time of Evaluation Date of Evaluation: 10/13/16 Time of Evaluation: 15:25 - Subjective Subjective: RFV: SBO S: Didn't tolerate NGT. Removed almost immediately;. Small amount of liquid suctioned out. He reports improved abdominal distention. Not passing gas or stool. No vomiting. Denies abdominal pain currently. Objective - Vital Signs/Intake and Output Vital Signs (last 24 hours): Temp Pulse Resp BP Pulse Ox 98.0 F 71 20 113/69 100 10/13/16 12:24 10/13/16 12:24 10/13/16 12:24 10/13/16 12:24 10/13/16 12:24 - Medications Medications: Current Medications Famotidine (Pepcid) 20 mg IVP DAILY [facility] Last Admin: 10/13/16 10:00 Dose: 20 mg Morphine Sulfate (Morphine) 4 mg IVP Q4 PRN PRN Reason: Pain, moderate (4-7) Last Admin: 10/12/16 21:24 Dose: 4 mg Ondansetron HCl (Zofran Inj) 4 mg IVP Q4 PRN PRN Reason: Nausea/Vomiting - Labs Labs: 10/12/16 08:00 10/12/16 05:28 PT 11.1 SECONDS (9.6-11.2) 10/11/16 23:30 INR 1.07 (0.92-1.08) 10/11/16 23:30 APTT 25.8 SECONDS (23.3-32.5) 10/11/16 23:30 - Constitutional Appears: No Acute Distress, Chronically Ill - Head Exam Head Exam: ATRAUMATIC, NORMOCEPHALIC - Eye Exam Eye Exam: Normal appearance. absent: Scleral icterus - Respiratory Exam Respiratory Exam: NORMAL BREATHING PATTERN. absent: Wheezes, Respiratory Distress - GI/Abdominal Exam GI & Abdominal Exam: Soft. absent: Distended, Tenderness - Neurological Exam Neurological Exam: Alert, Oriented x3 - Psychiatric Exam Psychiatric exam: Normal Affect, Normal Mood Assessment and Plan - Assessment and Plan (Free Text) Assessment: 46 year old male with h/o gastric ca s/p gastrectomy w/gastrojejunostomy, h/o multiple SBO admitted with small bowel obstruction. 1. Small bowel obstruction Plan: NPO w/sips of water/ice chips only IVF Supplement electrolytes as needed surgical consult appreciated He did not tolerate NGT decompression and removed it Repeat abdominal x ray reviewed and still with dilated loops of small bowel Repeat Abdominal x ray tomorrow If it doesn't resolve with conservative measures, surgery may be necessary
--- NOTE | 2016-10-13 16:22 | RAD ---
HISTORY: Small bowel obstruction. COMPARISON: October 12, 2016. CT abdomen and pelvis. FINDINGS: BOWEL: Persistent dilatation of proximal and mid small bowel. Fluid identified in the distal small bowel and colon. BONES: Normal. OTHER FINDINGS: Contrast in the bladder from recent CT scan. IMPRESSION: Persistent small bowel obstruction.
[2016-10-14 07:29] LABS: ALB/GLOB RATIO 1.2 (1.0-2.1); ALKALINE PHOSPHATASE 48 U/L (38-126); ALT/SGPT 23 U/L (21-72); AST/SGOT 16 U/L (17-59); BLOOD UREA NITROGEN 14 mg/dl (9-20); CALCIUM 8.1 mg/dL (8.4-10.2); CARBON DIOXIDE 20 mmol/L (22-30); CHLORIDE 106 mmol/L (98-107); GFR AFRICAN-AMERICAN > 60; GLUCOSE,RANDOM 69 mg/dL (75-110); POTASSIUM 3.8 MMOL/L (3.6-5.0); SODIUM 138 mmol/l (132-148)
[2016-10-14 07:37] LABS: BASO % 0.3 % (0.0-2.0); EOS # 0.1 K/uL (0.0-0.7); EOS % 1.4 % (0.0-4.0); HEMATOCRIT 37.5 % (35.0-51.0); LYMPH # 0.9 K/uL (1.0-4.3); LYMPH % 18.7 % (20.0-40.0); MEAN CELL VOLUME 84.9 fl (80.0-94.0); MEAN CORPUSCULAR HEMOGLOBIN 27.2 pg (27.0-31.0); MONO # 0.7 K/uL (0.0-0.8); MONO % 14.5 % (0.0-10.0); NEUT % 65.1 % (50.0-75.0); NRBC % 0.1 % (0.0-0.0); WHITE BLOOD COUNT 4.6 K/uL (4.8-10.8)
[2016-10-14 08:24] VITALS: RESP 20
--- NOTE | 2016-10-14 09:01 | CP.PCM.PN ---
<Ysabel José - Last Filed: 10/14/16 11:55> Subjective - Date & Time of Evaluation Date of Evaluation: 10/14/16 Time of Evaluation: 07:15 - Subjective Subjective: GENERAL SURGERY NOTE FOR DR. MARTINS: 46 yo male pt seen at bedside this morning w/ Dr. Martins. Says he is feeling much better today, says the abdominal pain has improved to a 2-3/10. Reports no longer needing to take the pain meds. Reports that he passed flatus once yesterday afternoon following the abdominal x-ray, but has not had any since. Denies bowel movement. Denies much of an appetite today, but does say he feels thirsty. Denies f/n/v/c/sob/cp. Pt says he is eager to leave and wants to go home soon. Objective - Vital Signs/Intake and Output Vital Signs (last 24 hours): Temp Pulse Resp BP Pulse Ox 97.7 F 65 20 108/67 98 10/14/16 08:24 10/14/16 08:24 10/14/16 08:24 10/14/16 08:24 10/14/16 08:24 - Medications Medications: Current Medications Famotidine (Pepcid) 20 mg IVP DAILY [facility] Last Admin: 10/13/16 10:00 Dose: 20 mg Morphine Sulfate (Morphine) 4 mg IVP Q4 PRN PRN Reason: Pain, moderate (4-7) Last Admin: 10/12/16 21:24 Dose: 4 mg Ondansetron HCl (Zofran Inj) 4 mg IVP Q4 PRN PRN Reason: Nausea/Vomiting - Labs Labs: 10/14/16 06:40 10/14/16 06:40 PT 11.1 SECONDS (9.6-11.2) 10/11/16 23:30 INR 1.07 (0.92-1.08) 10/11/16 23:30 APTT 25.8 SECONDS (23.3-32.5) 10/11/16 23:30 - Constitutional Appears: Non-toxic, No Acute Distress - Head Exam Head Exam: NORMAL INSPECTION - Eye Exam Eye Exam: EOMI, Normal appearance - Respiratory Exam Respiratory Exam: NORMAL BREATHING PATTERN - Cardiovascular Exam Cardiovascular Exam: REGULAR RHYTHM - GI/Abdominal Exam GI & Abdominal Exam: Soft, Tenderness (slight diffuse supra-pubic tenderness on palpation ). absent: Firm, Guarding, Rigid - Neurological Exam Neurological Exam: Alert, Awake, Oriented x3 - Psychiatric Exam Psychiatric exam: Normal Affect, Normal Mood - Skin Skin Exam: Normal Color, Warm Assessment and Plan - Assessment and Plan (Free Text) Assessment: 46 y/o male with small bowel obstruction. Plan: - Pt seen and examined at bedside - Chart, labs, vitals reviewed: afebrile, no leukocystosis - NGT d/c'd yesterday (pt unable to tolerate and requested removal) - Abd. x-ray (10/13) reviewed: persistent small bowel obstruction - Repeat abd x-ray (10/14): improvement of small bowel dilatation - c/w NPO diet for now - IV fluids - Zofran prn - Pepcid - no surgical intervention at this time. D/w pt that he may need surgery if symptoms do not resolve - will continue to monitor - seen w/ Dr. Martins present and plan discussed. -Ysabel José, PGY-1 <Eliazar Martins - Last Filed: 10/14/16 11:58> Subjective - Date & Time of Evaluation Date of Evaluation: 10/14/16 Time of Evaluation: 10:45 - Subjective Subjective: Patient was seen and examined at the bedside. Agree with resident's note above Objective - Vital Signs/Intake and Output Vital Signs (last 24 hours): Temp Pulse Resp BP Pulse Ox 97.7 F 65 20 108/63 98 10/14/16 09:00 10/14/16 09:00 10/14/16 09:00 10/14/16 09:00 10/14/16 09:00 - Medications Medications: Current Medications Famotidine (Pepcid) 20 mg IVP DAILY [facility] Last Admin: 10/14/16 11:10 Dose: 20 mg Morphine Sulfate (Morphine) 4 mg IVP Q4 PRN PRN Reason: Pain, moderate (4-7) Last Admin: 10/12/16 21:24 Dose: 4 mg Ondansetron HCl (Zofran Inj) 4 mg IVP Q4 PRN PRN Reason: Nausea/Vomiting - Labs Labs: 10/14/16 06:40 10/14/16 06:40 PT 11.1 SECONDS (9.6-11.2) 10/11/16 23:30 INR 1.07 (0.92-1.08) 10/11/16 23:30 APTT 25.8 SECONDS (23.3-32.5) 10/11/16 23:30
[2016-10-14 12:33] VITALS: BP 112/68; PULSE 66; TEMP 98.2; O2SAT 100
--- NOTE | 2016-10-14 12:50 | CP.PCM.PN ---
Subjective - Date & Time of Evaluation Date of Evaluation: 10/14/16 Time of Evaluation: 09:00 - Subjective Subjective: Patient seen at bedside. Had flatus. States pain feeling better. Hungry. Wants to go home. Objective - Vital Signs/Intake and Output Vital Signs (last 24 hours): Temp Pulse Resp BP Pulse Ox 98.2 F 66 20 112/68 100 10/14/16 12:32 10/14/16 12:32 10/14/16 12:32 10/14/16 12:32 10/14/16 12:32 - Medications Medications: Current Medications Famotidine (Pepcid) 20 mg IVP DAILY [facility] Last Admin: 10/14/16 11:10 Dose: 20 mg Morphine Sulfate (Morphine) 4 mg IVP Q4 PRN PRN Reason: Pain, moderate (4-7) Last Admin: 10/12/16 21:24 Dose: 4 mg Ondansetron HCl (Zofran Inj) 4 mg IVP Q4 PRN PRN Reason: Nausea/Vomiting - Labs Labs: 10/14/16 06:40 10/14/16 06:40 PT 11.1 SECONDS (9.6-11.2) 10/11/16 23:30 INR 1.07 (0.92-1.08) 10/11/16 23:30 APTT 25.8 SECONDS (23.3-32.5) 10/11/16 23:30 - Constitutional Appears: Well, Non-toxic, No Acute Distress - Eye Exam Eye Exam: EOMI, Normal appearance, PERRL - ENT Exam ENT Exam: Mucous Membranes Moist, Normal Exam - Respiratory Exam Respiratory Exam: Clear to Ausculation Bilateral, NORMAL BREATHING PATTERN - Cardiovascular Exam Cardiovascular Exam: REGULAR RHYTHM, +S1, +S2. absent: Murmur - GI/Abdominal Exam GI & Abdominal Exam: Soft, Hypoactive Bowel Sounds. absent: Tenderness Additional comments: Non tender. No distension - Neurological Exam Neurological Exam: Alert, Awake, CN II-XII Intact, Normal Gait, Oriented x3 - Psychiatric Exam Psychiatric exam: Normal Affect, Normal Mood - Skin Skin Exam: Dry, Intact, Normal Color, Warm Assessment and Plan - Assessment and Plan (Free Text) Assessment: 46 year old male with h/o gastric ca s/p gastrectomy w/gastrojejunostomy, h/o multiple SBO admitted with small bowel obstruction. 1. Small bowel obstruction Plan: NPO w/sips of water/ice chips only IVF Supplement electrolytes as needed surgical consult appreciated Repeat Abdominal x ray with some improvement Patient wants to go home- decision is based upon surgery
[2016-10-14] MEDS ORDERED: Dextrose 5%/0.45% NS 1,000 ML IV SCH (13:15)
--- NOTE | 2016-10-14 13:40 | RAD ---
HISTORY: small bowel obstruction COMPARISON: 10/13/2016 FINDINGS: BOWEL: Incompletely visualized is moderate dilatation of a bowel loop in the left upper quadrant. There is interval decompression of the dilated small bowel loops in the mid abdomen. BONES: Normal. OTHER FINDINGS: None. IMPRESSION: Interval decompression of dilated small bowel loops in the midabdomen. Persistent deleted bowel in the left upper quadrant is incompletely imaged.
--- NOTE | 2016-10-14 14:35 | CP.PCM.DIS ---
<Barbi Kraus - Last Filed: 10/14/16 14:33> Provider - Provider Date of Admission: 10/12/16 03:17 Attending physician: Delta Horn MD Consults: Surgery, GI Time Spent in preparation of Discharge (in minutes): 20 Diagnosis - Discharge Diagnosis (1) Small bowel obstruction Status: Acute Hospital Course - Lab Results Lab Results: Most Recent Lab Values WBC 4.6 K/uL (4.8-10.8) L 10/14/16 06:40 RBC 4.41 Mil/uL (4.40-5.90) 10/14/16 06:40 Hgb 12.0 g/dL (12.0-18.0) 10/14/16 06:40 Hct 37.5 % (35.0-51.0) 10/14/16 06:40 MCV 84.9 fl (80.0-94.0) 10/14/16 06:40 MCH 27.2 pg (27.0-31.0) 10/14/16 06:40 MCHC 32.0 g/dL (33.0-37.0) L 10/14/16 06:40 RDW 14.0 % (11.5-14.5) 10/14/16 06:40 Plt Count 184 K/uL (130-400) 10/14/16 06:40 MPV 9.0 fl (7.2-11.7) 10/14/16 06:40 Neut % (Auto) 65.1 % (50.0-75.0) 10/14/16 06:40 Lymph % (Auto) 18.7 % (20.0-40.0) L 10/14/16 06:40 [place] % (Auto) 14.5 % (0.0-10.0) H 10/14/16 06:40 Eos % (Auto) 1.4 % (0.0-4.0) 10/14/16 06:40 Baso % (Auto) 0.3 % (0.0-2.0) 10/14/16 06:40 Neut # 3.0 K/uL (1.8-7.0) 10/14/16 06:40 Lymph # 0.9 K/uL (1.0-4.3) L 10/14/16 06:40 [place] # 0.7 K/uL (0.0-0.8) 10/14/16 06:40 Eos # 0.1 K/uL (0.0-0.7) 10/14/16 06:40 Baso # 0.0 K/uL (0.0-0.2) 10/14/16 06:40 PT 11.1 SECONDS (9.6-11.2) 10/11/16 23:30 INR 1.07 (0.92-1.08) 10/11/16 23:30 APTT 25.8 SECONDS (23.3-32.5) 10/11/16 23:30 Sodium 138 mmol/l (132-148) 10/14/16 06:40 Potassium 3.8 MMOL/L (3.6-5.0) 10/14/16 06:40 Chloride 106 mmol/L (98-107) 10/14/16 06:40 Carbon Dioxide 20 mmol/L (22-30) L 10/14/16 06:40 Anion Gap 16 (10-20) 10/14/16 06:40 BUN 14 mg/dl (9-20) 10/14/16 06:40 Creatinine 0.7 mg/dL (0.8-1.5) L 10/14/16 06:40 Est GFR ( Amer) > 60 10/14/16 06:40 Est GFR (Non-Af Amer) > 60 10/14/16 06:40 POC Glucose (mg/dL) 101 mg/dL (65-110) 10/12/16 07:55 Random Glucose 69 mg/dL (75-110) L 10/14/16 06:40 Lactic Acid 1.2 MMOL/L (0.7-2.1) 10/11/16 23:30 Calcium 8.1 mg/dL (8.4-10.2) L 10/14/16 06:40 Total Bilirubin 1.0 mg/dl (0.2-1.3) 10/14/16 06:40 AST 16 U/L (17-59) L 10/14/16 06:40 ALT 23 U/L (21-72) 10/14/16 06:40 Alkaline Phosphatase 48 U/L (38-126) 10/14/16 06:40 Total Protein 6.0 G/DL (6.3-8.2) L 10/14/16 06:40 Albumin 3.3 g/dL (3.5-5.0) L 10/14/16 06:40 Globulin 2.8 gm/dL (2.2-3.9) 10/14/16 06:40 Albumin/Globulin Ratio 1.2 (1.0-2.1) 10/14/16 06:40 Lipase 22 U/L (23-300) L 10/11/16 23:30 Urine Color [place] (YELLOW) 10/11/16 06:57 Urine Clarity Slighty-cloudy (Clear) 10/11/16 06:57 Urine pH 5.0 (5.0-8.0) 10/11/16 06:57 Ur Specific [place] 1.035 (1.003-1.030) H 10/11/16 06:57 Urine Protein 100 mg/dL (NEGATIVE) 10/11/16 06:57 Urine Glucose (UA) Neg mg/dL (Normal) 10/11/16 06:57 Urine Ketones 80 mg/dL (NEGATIVE) 10/11/16 06:57 Urine Blood Negative (NEGATIVE) 10/11/16 06:57 Urine Nitrate Negative (NEGATIVE) 10/11/16 06:57 Urine Bilirubin Negative (NEGATIVE) 10/11/16 06:57 Urine Urobilinogen 0.2-1.0 mg/dL (0.2-1.0) 10/11/16 06:57 Ur Leukocyte Esterase Neg [place]/uL (Negative) 10/11/16 06:57 Urine RBC (Auto) 2 /hpf (0-3) 10/11/16 06:57 Urine Microscopic WBC 4 /hpf (0-5) 10/11/16 06:57 Ur Squamous Epith Cells 1 /hpf (0-5) 10/11/16 06:57 - Hospital Course Hospital Course: Pt was admitted for SBO, surgery and GI were consulted, he was being managed conservatively but decided to sign out against medical advise today. Discharge Exam - Head Exam Head Exam: NORMAL INSPECTION - Eye Exam Eye Exam: Normal appearance - ENT Exam ENT Exam: Mucous Membranes Moist - Respiratory Exam Respiratory Exam: NORMAL BREATHING PATTERN - Cardiovascular Exam Cardiovascular Exam: REGULAR RHYTHM - GI/Abdominal Exam GI & Abdominal Exam: Normal Bowel Sounds, Soft, Tenderness - Extremities Exam Extremities exam: normal inspection - Neurological Exam Neurological exam: Alert, CN II-XII Intact, Oriented x3 - Skin Skin Exam: Normal Color Discharge Plan - Follow Up Plan Condition: FAIR Disposition: AGAINST MEDICAL ADVICE Additional Instructions: Pt left against medical advise, states he is fine and bored <Delta Horn - Last Filed: 10/15/16 12:43> Provider - Provider Date of Admission: 10/12/16 03:17 Attending physician: Delta Horn MD Hospital Course - Lab Results Lab Results: Most Recent Lab Values WBC 4.6 K/uL (4.8-10.8) L 10/14/16 06:40 RBC 4.41 Mil/uL (4.40-5.90) 10/14/16 06:40 Hgb 12.0 g/dL (12.0-18.0) 10/14/16 06:40 Hct 37.5 % (35.0-51.0) 10/14/16 06:40 MCV 84.9 fl (80.0-94.0) 10/14/16 06:40 MCH 27.2 pg (27.0-31.0) 10/14/16 06:40 MCHC 32.0 g/dL (33.0-37.0) L 10/14/16 06:40 RDW 14.0 % (11.5-14.5) 10/14/16 06:40 Plt Count 184 K/uL (130-400) 10/14/16 06:40 MPV 9.0 fl (7.2-11.7) 10/14/16 06:40 Neut % (Auto) 65.1 % (50.0-75.0) 10/14/16 06:40 Lymph % (Auto) 18.7 % (20.0-40.0) L 10/14/16 06:40 [place] % (Auto) 14.5 % (0.0-10.0) H 10/14/16 06:40 Eos % (Auto) 1.4 % (0.0-4.0) 10/14/16 06:40 Baso % (Auto) 0.3 % (0.0-2.0) 10/14/16 06:40 Neut # 3.0 K/uL (1.8-7.0) 10/14/16 06:40 Lymph # 0.9 K/uL (1.0-4.3) L 10/14/16 06:40 [place] # 0.7 K/uL (0.0-0.8) 10/14/16 06:40 Eos # 0.1 K/uL (0.0-0.7) 10/14/16 06:40 Baso # 0.0 K/uL (0.0-0.2) 10/14/16 06:40 PT 11.1 SECONDS (9.6-11.2) 10/11/16 23:30 INR 1.07 (0.92-1.08) 10/11/16 23:30 APTT 25.8 SECONDS (23.3-32.5) 10/11/16 23:30 Sodium 138 mmol/l (132-148) 10/14/16 06:40 Potassium 3.8 MMOL/L (3.6-5.0) 10/14/16 06:40 Chloride 106 mmol/L (98-107) 10/14/16 06:40 Carbon Dioxide 20 mmol/L (22-30) L 10/14/16 06:40 Anion Gap 16 (10-20) 10/14/16 06:40 BUN 14 mg/dl (9-20) 10/14/16 06:40 Creatinine 0.7 mg/dL (0.8-1.5) L 10/14/16 06:40 Est GFR ( Amer) > 60 10/14/16 06:40 Est GFR (Non-Af Amer) > 60 10/14/16 06:40 POC Glucose (mg/dL) 101 mg/dL (65-110) 10/12/16 07:55 Random Glucose 69 mg/dL (75-110) L 10/14/16 06:40 Lactic Acid 1.2 MMOL/L (0.7-2.1) 10/11/16 23:30 Calcium 8.1 mg/dL (8.4-10.2) L 10/14/16 06:40 Total Bilirubin 1.0 mg/dl (0.2-1.3) 10/14/16 06:40 AST 16 U/L (17-59) L 10/14/16 06:40 ALT 23 U/L (21-72) 10/14/16 06:40 Alkaline Phosphatase 48 U/L (38-126) 10/14/16 06:40 Total Protein 6.0 G/DL (6.3-8.2) L 10/14/16 06:40 Albumin 3.3 g/dL (3.5-5.0) L 10/14/16 06:40 Globulin 2.8 gm/dL (2.2-3.9) 10/14/16 06:40 Albumin/Globulin Ratio 1.2 (1.0-2.1) 10/14/16 06:40 Lipase 22 U/L (23-300) L 10/11/16 23:30 Urine Color [place] (YELLOW) 10/11/16 06:57 Urine Clarity Slighty-cloudy (Clear) 10/11/16 06:57 Urine pH 5.0 (5.0-8.0) 10/11/16 06:57 Ur Specific [place] 1.035 (1.003-1.030) H 10/11/16 06:57 Urine Protein 100 mg/dL (NEGATIVE) 10/11/16 06:57 Urine Glucose (UA) Neg mg/dL (Normal) 10/11/16 06:57 Urine Ketones 80 mg/dL (NEGATIVE) 10/11/16 06:57 Urine Blood Negative (NEGATIVE) 10/11/16 06:57 Urine Nitrate Negative (NEGATIVE) 10/11/16 06:57 Urine Bilirubin Negative (NEGATIVE) 10/11/16 06:57 Urine Urobilinogen 0.2-1.0 mg/dL (0.2-1.0) 10/11/16 06:57 Ur Leukocyte Esterase Neg [place]/uL (Negative) 10/11/16 06:57 Urine RBC (Auto) 2 /hpf (0-3) 10/11/16 06:57 Urine Microscopic WBC 4 /hpf (0-5) 10/11/16 06:57 Ur Squamous Epith Cells 1 /hpf (0-5) 10/11/16 06:57
--- NOTE | 2016-10-15 15:38 | PN ---
DATE: 10/14/2016 The patient has not had any bowel movement. He denies any nausea or vomiting. PHYSICAL EXAMINATION: VITAL SIGNS: Blood pressure 112/68, heart rate 66, temperature 98.2, respirations 20. HEENT: Normocephalic. NECK: No JVD. CHEST: Clear. HEART: S1, S2 regular. EXTREMITIES: No edema. LABORATORIES: CBC: WBC 4.6, hemoglobin 12, hematocrit 37.5, platelet count 184,000. Today's SMA-7 is within normal limits except for carbon dioxide 20 and creatinine of 0.7. GI followup was reviewed. ASSESSMENT: Still small bowel obstruction. RECOMMENDATIONS: NPO. Will supplement electrolytes as needed with repeat abdominal x-ray. The repo rt of that x-ray revealed interval decompression of dilated small bowel loops in the midabdomen. Per sistent dilated bowel in the left upper quadrant is incompletely imaged. ASSESSMENT: 1. Small bowel mechanical obstruction. 2. History of gastroc cancer, status post partial gastrectomy and gastrojejunostomy. RECOMMENDATIONS: Continue current medications including D5 normal saline infusion, IV Pepcid and p.r .n. IV morphine. Xander Mosqueda MD cc: [id number] TT: 10/14/2016 14:13:41 Confirmation # [id number] Dictation # [id number] mn
== END 2016-10-14 14:50 | disposition left against medical advice (07) | DRG 390 ==
LOC: H.ER 21:46 → UNDOADMIN 10-12 03:16 → H.ERHOLD 10-12 03:16 → H.TEL 10-12 08:20
PROVIDERS: ADMIT Internal Medicine; ATTEND Internal Medicine
DX: K56.60 Unspecified intestinal obstruction (principal); Z85.028 Personal history of other malignant neoplasm of stomach; Z87.891 Personal history of nicotine dependence